=== PATIENT | female | born 1965 | race Caucasian/White ===

== ENCOUNTER 2017-07-15 07:30 | Inpatient (IN) | payer BC ==
--- NOTE | 2017-07-02 19:33 | HP ---
HISTORY AND PHYSICAL: DATE OF ADMISSION/SURGERY: 07/15/17 DATE OF OFFICE VISIT: 07/02/17 SURGEON: Deann Mcmahon MD * (DICTATED BY MEJIA ALEGRE) PROCEDURE: Right total knee arthroplasty. CHIEF COMPLAINT: Right knee pain. HISTORY OF PRESENT ILLNESS: Kortney is a 52-year-old female with continued complaints of right knee pain secondary to advanced osteoarthritis. She has failed conservative management and has elected to proceed with a right total knee arthroplasty, which is scheduled for 07/15/17. PAST MEDICAL HISTORY: High cholesterol, hypertension, GERD, and history of AVM. PAST SURGICAL HISTORY: Partial hysterectomy, diskectomy, craniotomy, bilateral knee arthroscopies, wisdom teeth extraction, and cervical fusion. CURRENT MEDICATIONS: 1. Lisinopril 30 mg every day. 2. Effexor 75 mg every day. 3. Protonix 40 mg every day. 4. Aleve as needed. ALLERGIES: To DILANTIN, TEGRETOL, and TAPE. FAMILY HISTORY: Cancer. SOCIAL HISTORY: She is a 52-year-old female. She lives alone. 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 She does not smoke or use drugs. She drinks occasional alcohol. REVIEW OF SYSTEMS: A complete 14-point review of systems was reviewed with the patient. It is all negative or noncontributory. PHYSICAL EXAMINATION GENERAL: She is well developed, well nourished, in no acute distress. VITAL SIGNS: She stands 5 feet 5 inches tall, weighs 218 pounds. Her blood pressure is 143/82, heart rate 79. HEENT: Normocephalic, atraumatic. NECK: Supple. No palpable lymph nodes. PULMONARY: Lungs are clear to auscultation bilaterally. CARDIO: Regular rate and rhythm. Strong S1, S2. ABDOMEN: Soft, nontender, nondistended. NEUROLOGICAL: She is alert and oriented x3. Cranial nerves II through XII are intact. MUSCULOSKELETAL: Right lower extremity, the skin is intact. There are no open wounds or abrasions. She has tenderness to palpation over the medial and lateral joint lines. 0 to 125 degrees range of motion. No varus or valgus instability. 2+ dorsalis pedis pulses. Intact sensation. Her lower extremity muscle group strengths are intact at 5/5. ASSESSMENT AND PLAN: Kortney is a 52-year-old female with continued complaints of right knee pain secondary to advanced end-stage arthritis of the right knee. She has failed conservative management and has elected to proceed with right total knee arthroplasty, which is scheduled for 07/15/[address] Mcmahon discussed the risks and benefits of the surgery at today's visit and all of her questions were answered. [place] and Colace were sent to her pharmacy for postoperative pain control and Coumadin was sent as well for DVT prophylaxis. She will see Dr. Mcmahon back in 2 weeks after the surgery. MEJIA ALEGRE [id number]/[facility] #: [id number] MTDD
[~2017-07-15 07:30] MED LIST: Buffered Lidocaine 0.9% SYRIN* 5 ML/SYR SYRINGE INTRADERM ONE; Buffered Lidocaine 0.9% SYRIN* 5 ML/SYR SYRINGE ONE; ceFAZolin 2 GM PREMIX (*) 50 ML IVPB ONE
[2017-07-15] MEDS ORDERED: Midazolam* 1 MG/ML 5 ML VIAL (5 MG) ONE (08:45)
[2017-07-15] MEDS ORDERED: fentaNYL* 50 MCG/ML 2 ML VIAL (100 MCG VIAL) ONE (08:45)
[2017-07-15] MEDS ORDERED: Bupivacaine 0.5% SDV PF* 30 ML VIAL ONE ×2 (09:00→09:35)
[2017-07-15] MEDS ORDERED: Morphine PF AMP (0.5MG/ML)* 5 MG/10 ML AMP ONE (09:06)
[2017-07-15] MEDS ORDERED: Bupivacaine 0.5% W/EPI SDV* 30 ML VIAL ONE (09:35)
[2017-07-15] MEDS ORDERED: Propofol* 10 MG/ML 20 ML BTL IV PUSH ONE ×2 (09:35→10:09)
[2017-07-15] MEDS ORDERED: Midazolam* 1 MG/ML 2 ML VIAL (2 MG) ONE ×2 (09:38→10:07)
[2017-07-15] MEDS ORDERED: DiMENhydriNATE IV* 50 MG/ML VIAL IV PUSH PRN (10:00)
[2017-07-15] MEDS ORDERED: Nalbuphine* 20 MG/ML 1 ML VIAL IV PRN (10:00)
[2017-07-15] MEDS ORDERED: PROCHLORPERAZINE INJ 5 MG/ML 2 ML VIAL IV PRN (10:00)
[2017-07-15] MEDS ORDERED: Ondansetron INJ* 2 MG/ML VIAL IV PRN ×2 (10:00→12:15)
[2017-07-15] MEDS ORDERED: Scopolomine PATCH Remove* 1 NOTE MISC PATCH OFF PRN (10:00)
[2017-07-15] MEDS ORDERED: Scopolamine 1.5 mg* PATCH TRANSDERM PRN (10:00)
[2017-07-15] MEDS ORDERED: Naloxone* 0.4 MG/ML 1 ML VIAL IV PRN (10:00)
[2017-07-15] MEDS ORDERED: Polyethylene Glycol 3350* 17 GM PACKET PO PRN (12:15)
[2017-07-15] MEDS ORDERED: Ondansetron TAB* 4 MG PO PRN (12:15)
[2017-07-15] MEDS ORDERED: Acetaminophen TAB* 325 MG PO PRN (12:15)
[2017-07-15] MEDS ORDERED: diPHENhydraMINE IV* 50 MG/ML 1 ml VIAL (BENADRYL) ONE (12:52)
[2017-07-15] MEDS: diPHENhydraMINE IV* 50 MG/ML 1 ml VIAL (BENADRYL) IV PRN ×2 (12:53→20:09)
--- NOTE | 2017-07-15 13:00 | RAD ---
Indication: Immediate postop exam following RIGHT total knee replacement. Comparison: March 22, 2017 Technique: Portable AP and cross table lateral views RIGHT knee. Report: Status post total knee replacement. Anterior surgical drain in place. Predominant anterior and soft tissue swelling. Alignment is anatomic. No periprosthetic fracture evident. IMPRESSION: Unremarkable immediate postoperative appearance following RIGHT knee replacement.
[2017-07-15] MEDS ORDERED: oxyCODONE/Acetamin 5/325 MG* TAB ONE (14:01)
[2017-07-15] MEDS: oxyCODONE/Acetamin 5/325 MG* TAB PO PRN ×4 (14:02→23:32)
[2017-07-15] MEDS ORDERED: Warfarin TAB(*) 4 MG PO ONE (17:00)
[2017-07-15] MEDS: ceFAZolin 1 GM VIAL(*) 1 GM in NS 0.9% 50 ML* 50 ML IVPB SCH (17:39)
[2017-07-15] MEDS ORDERED: diPHENhydraMINE IV* 50 MG/ML 1 ml VIAL (BENADRYL) IV PRN (20:08)
[2017-07-15] MEDS: Magnesium Hydroxide LIQ* 30 ML UDC PO SCH (20:08)
[2017-07-15] MEDS: Docusate CAP* 100 MG PO SCH (20:08)
[2017-07-15] MEDS: Ferrous Sulfate TAB* 325 MG PO SCH (20:09)
[2017-07-16] MEDS: oxyCODONE/Acetamin 5/325 MG* TAB PO PRN ×5 (01:40→21:58)
[2017-07-16] MEDS: ceFAZolin 1 GM VIAL(*) 1 GM in NS 0.9% 50 ML* 50 ML IVPB SCH ×2 (01:40→09:54)
[2017-07-16] MEDS: oxyCODONE TAB* 5 MG TAB PO PRN ×3 (03:18→17:44)
[2017-07-16 06:43] LABS: Hematocrit 32 % (35-47); Hemoglobin 10.8 g/dl (12.0-16.0)
[2017-07-16 06:44] LABS: Comments Flag Yes
[2017-07-16 06:56] LABS: BUN/Creatinine Ratio 9.7 (8-20); Calcium 8.4 mg/dL (8.6-10.3); EGFR Non-African American 101.1 (>60)
[2017-07-16 06:58] LABS: Potassium 4.1 mmol/L (3.5-5.0)
--- NOTE | 2017-07-16 08:45 | OP ---
DATE OF SURGERY: 07/15/17 - ROOM #339 DATE OF : 65 ATTENDING SURGEON: Deann Mcmahon MD. YARN WEIGHT AND STRENGTH TESTER: MEJIA Byrne. Phijudith did help throughout the procedure with preparation of the leg, wound retraction, manipulation of the knee, and wound closure. ANESTHESIOLOGIST: Dr. Ivonne Robertson. ANESTHESIA: Spinal with adductor nerve block. PRE-OP DIAGNOSIS: Severe end-stage degenerative osteoarthritis of the right knee joint. POST-OP DIAGNOSIS: Severe end-stage degenerative osteoarthritis of the right knee joint. PROCEDURE PERFORMED: Right total knee arthroplasty. TOURNIQUET TIME: 57 minutes. ESTIMATED BLOOD LOSS: 250 cc. COMPLICATIONS: None. SPECIMENS: Bone and cartilage from the right knee joint sent to pathology. HARDWARE USED: [employer] Nephew cemented total knee arthroplasty hardware. Two packages of Simplex bone cement. For the femur, a size 5 narrow right posterior stabilized Legion Oxinium femoral component. For the tibial tray, size 3 right tibial baseplate. For the insert, a 9 mm posterior stabilized articular insert size 3-4. For the patella, 32-mm 7.5 thickness 3-peg all poly patella. BRIEF HISTORY/INDICATIONS: Mr. Bustamante is a 52-year-old female with years of increasingly severe right knee pain. She failed conservative treatment with antiinflammatories, pain medication, intraarticular injections, and physical therapy. Radiographs showed compartmental end-stage arthritis of the right knee joint. Due to continued pain and decreased quality of life, she elected to undergo right total knee arthroplasty. Informed consent was obtained from the patient. She understood the risks of the procedure included, but were not limited to bleeding, infection, damage to nearby structures, continued pain, need for further surgery, intraoperative fracture, nerve palsy, hardware failure or loosening, knee stiffness, loss of motion, stroke, heart attack, blood clot, and . She wished to proceed. INTRAOPERATIVE FINDINGS: Intraoperatively, the patient was noted to have extreme deformation of the patella with osteophyte formation and subchondral sclerosis. She had complete loss of cartilage along the medial and lateral femoral condyles. Preoperatively, she was noted to have a 15-degree flexion contracture. This was corrected to full extension to 130 degrees of flexion by the end of the case. DESCRIPTION OF PROCEDURE: Ms. Bustamante was identified in the preanesthesia unit. Her right lower extremity was marked as the correct operative side. Informed consent was signed and placed in the chart. The patient was taken to the operating room and placed under spinal anesthesia with an adductor nerve block. [place] catheter was placed. Tourniquet was placed on the right thigh. The right lower extremity was prepped and draped in the usual sterile fashion. Preop time-out was made to correctly identify the patient's side and site. Appropriate perioperative antibiotics were given within one hour of incision. A 12-cm midline incision was made with a 10-blade and carried down to the extensor mechanism. A new 10-blade was used to make a median parapatellar arthrotomy. Electrocautery was used to subperiosteally elevate soft tissue off the superomedial tibia to the sagittal plane. Any osteophytes were removed with a rongeur. The knee was flexed up. The anterior horn of the lateral meniscus and ACL were sharply released. A drill was used to enter the distal femur. Intramedullary distal cutting guide was pinned into proper position on the distal femur. 9-mm of distal femoral bone was carefully removed with an oscillating saw. Next, the external rotation pinned on the distal femur. The distal femur was sized to a size 5. A size 5 multi-cutting jig was pinned on the distal femur. Oscillating saw was used to make the appropriate chamfer cuts. Next, the PCL was completely released using electrocautery. The extramedullary tibial cutting guide was pinned on the proximal tibia. Oscillating saw was used to make the proximal tibial cut perpendicular to the mechanical axis of the tibia. The bone was carefully removed. The knee was brought out into full extension, and a spacer block had excellent fit. There was good medial and lateral ligaments balancing. Good flexion and extension ___ __ balancing. The knee was flexed up. Lamina generator mechanic was placed both medially and laterally. Any remaining meniscus was carefully removed using electrocautery. Posterior osteophytes were removed using a curette and curved osteotome. Tibial tray and drop renetta were used to, once again, confirm satisfactory proximal tibial cut. A size 5 right narrow femoral trial was impacted onto the distal femur. This had excellent fit. The box for the posterior stabilized implant was prepared using a reamer and box cut osteotome. A size 3 tibial tray with a 9-mm insert trial was placed, and the knee was taken through a range of motion. The knee had full extension to 130 degrees of flexion. There was good patellofemoral tracking. The patella was carefully everted. 7 mm of patellar bone and cartilage was carefully removed using an oscillating saw. The patella was sized to a size 32. The three peg holes were drilled through the size 32 guide. A 7.5- thickness patellar trial was chosen, and this was placed on the patella. The knee was taken through a range of motion, and there was satisfactory patellofemoral tracking. All trials were carefully removed. The tibia was subluxed anteriorly and sized to a size 3. The proximal tibia was prepared using a size 3 keel punch. All bony cut surfaces were copiously irrigated with sterile saline and dried. The final implants were cemented into place starting with the tibia, followed by the femur, and last the patella. A 9-mm insert trial was placed while the knee was brought out into full extension. Tourniquet was turned down at 57 minutes. The knee was copiously irrigated with sterile saline. Once the cement had fully cured, the insert trial was removed. Any excess cement was carefully removed from around the implant and capsule. Electrocautery was used to obtain meticulous hemostasis. Final insert chosen was a 9-mm posterior stabilized articular insert, size 3-4. This was locked into position on the tibial tray without difficulty. The stability of the insert was checked and rechecked, and noted to be stable. The knee was once again copiously irrigated with sterile saline. Extensor mechanism was closed using interrupted #1 Vicryls over a medium Hemovac drain. The rest of the incision was closed in a layered fashion using 0 and 2-0 Vicryls. Skin was closed using running 3-0 nylon suture. Sterile Xeroform, 4x4s, and Webril were used to cover the incision. Justus wrap and cold pack were placed over this. The patient's anesthesia was reversed without difficulty. She was taken to the PACU in stable condition. Intended weightbearing will be weightbearing as tolerated. Intended DVT prophylaxis will be Coumadin with a Lovenox bridge. [id number]/[facility] #: [id number] [facility]
[2017-07-16] MEDS: Venlafaxine EXT RELEASE CAP* 75 MG PO SCH (08:47)
[2017-07-16] MEDS: Docusate CAP* 100 MG PO SCH ×2 (08:47→20:26)
[2017-07-16] MEDS: Omeprazole CAP* 20 MG PO SCH (08:47)
[2017-07-16] MEDS: Magnesium Hydroxide LIQ* 30 ML UDC PO SCH ×2 (08:47→20:27)
[2017-07-16] MEDS: oxyCODONE SR TAB(*) 10 MG TAB.SR PO SCH ×2 (08:48→20:26)
[2017-07-16] MEDS: Lisinopril TAB* 10 MG PO SCH (08:50)
[2017-07-16] MEDS: Ferrous Sulfate TAB* 325 MG PO SCH ×2 (08:50→20:26)
[2017-07-16] MEDS: Vitamin THERAPEUTIC TAB PO SCH (08:50)
[2017-07-16] MEDS ORDERED: NS 0.9% 50 ML* 50 ML ONE (09:50)
--- NOTE | 2017-07-16 10:59 | PN ---
Progress Note - Progress Note Date of Service: 07/16/17 SOAP: Subjective: Pt. is alert, c/o severe pain. Objective: RLE - dressing c/d/i. distally nvi with +df/pf, full sens lt, 2+ dp pulse. drain removed, tip intact. Vital Signs: Temp Pulse Resp BP Pulse Ox 99.7 F 95 18 126/66 94 07/16/17 08:13 07/16/17 08:13 07/16/17 09:55 07/16/17 08:13 07/16/17 08:13 Laboratory Results - last 24 hr 07/16/17 07/16/17 07/16/17 06:32 06:32 06:32 Hgb 10.8 L Hct 32 L INR (Anticoag Therapy) 1.31 H Sodium 136 Potassium 4.1 Chloride 101 Carbon Dioxide 30 Anion Gap 5 BUN 6 Creatinine 0.62 Est GFR ( Amer) 130.0 Est GFR (Non-Af Amer) 101.1 BUN/Creatinine Ratio 9.7 Glucose 122 H Calcium 8.4 L Assessment: 52 yo F pod 1 s/p RTKA Plan: wbat pt/ot lovenox while in hospital, home on ecasa plan d/c to home with outpt pt
[2017-07-16] MEDS: Enoxaparin(*) 40 MG/0.4 ML SYR SUBCUT SCH (12:46)
[2017-07-16] MEDS: Morphine INJ* 4 MG/ML 1 ML SYRINGE IV PRN (15:24)
[2017-07-17] MEDS: oxyCODONE TAB* 5 MG TAB PO PRN ×5 (00:21→21:42)
[2017-07-17] MEDS: oxyCODONE/Acetamin 5/325 MG* TAB PO PRN ×4 (03:29→18:04)
[2017-07-17 06:55] LABS: Hematocrit 29 % (35-47); Hemoglobin 9.7 g/dl (12.0-16.0); Mean Platelet Volume 8 um3 (7.4-10.4)
--- NOTE | 2017-07-17 08:34 | PN ---
Progress Note - Progress Note Date of Service: 07/17/17 SOAP: Subjective: Pt. resting comfortably in bed with complaints of moderate pain Objective: Vital Signs Temp Pulse Resp BP Pulse Ox 99.0 F 104 18 127/71 98 07/17/17 03:32 07/17/17 03:32 07/17/17 06:41 07/17/17 03:32 07/17/17 03:32 Laboratory Last Values Hgb 9.7 g/dl (12.0-16.0) L 07/17/17 06:35 Hct 29 % (35-47) L 07/17/17 06:35 Plt Count 261 10^3/ul (150-450) 07/17/17 06:35 MPV 8 um3 (7.4-10.4) 07/17/17 06:35 INR (Anticoag Therapy) 1.43 (0.89-1.11) H 07/17/17 06:35 Sodium 136 mmol/L (133-145) 07/16/17 06:32 Potassium 4.1 mmol/L (3.5-5.0) 07/16/17 06:32 Chloride 101 mmol/L (101-111) 07/16/17 06:32 Carbon Dioxide 30 mmol/L (22-32) 07/16/17 06:32 Anion Gap 5 mmol/L (2-11) 07/16/17 06:32 BUN 6 mg/dL (6-24) 07/16/17 06:32 Creatinine 0.62 mg/dL (0.51-0.95) 07/16/17 06:32 Est GFR ( Amer) 130.0 (>60) 07/16/17 06:32 Est GFR (Non-Af Amer) 101.1 (>60) 07/16/17 06:32 BUN/Creatinine Ratio 9.7 (8-20) 07/16/17 06:32 Glucose 122 mg/dL (70-100) H 07/16/17 06:32 Calcium 8.4 mg/dL (8.6-10.3) L 07/16/17 06:32 incision: c/d; dressing changed PE: NVI Assessment: s/p Right TKA Plan: 1) PT/OT-WBAT 2) Lovenox/SCD's for DVT prophylaxis; will go home with ecasa 3) likely home tomorrow with VNS
[2017-07-17] MEDS: Omeprazole CAP* 20 MG PO SCH (09:37)
[2017-07-17] MEDS: Lisinopril TAB* 10 MG PO SCH (09:40)
[2017-07-17] MEDS: Ferrous Sulfate TAB* 325 MG PO SCH ×2 (09:49→19:51)
[2017-07-17] MEDS: Docusate CAP* 100 MG PO SCH ×2 (09:49→19:51)
[2017-07-17] MEDS: oxyCODONE SR TAB(*) 10 MG TAB.SR PO SCH ×2 (09:49→19:51)
[2017-07-17] MEDS: Magnesium Hydroxide LIQ* 30 ML UDC PO SCH ×2 (09:49→20:45)
[2017-07-17] MEDS: Vitamin THERAPEUTIC TAB PO SCH (09:50)
[2017-07-17] MEDS: Venlafaxine EXT RELEASE CAP* 75 MG PO SCH (09:50)
[2017-07-17] MEDS ORDERED: Cyclobenzaprine TAB* 10 MG PO PRN (10:02)
[2017-07-17] MEDS: Morphine INJ* 4 MG/ML 1 ML SYRINGE IV PRN (10:03)
[2017-07-17] MEDS: Enoxaparin(*) 40 MG/0.4 ML SYR SUBCUT SCH (12:49)
[2017-07-18] MEDS: oxyCODONE TAB* 5 MG TAB PO PRN ×3 (04:01→12:56)
[2017-07-18 06:22] LABS: Hematocrit 27 % (35-47)
--- NOTE | 2017-07-18 07:22 | PN ---
Progress Note - Progress Note Date of Service: 07/18/17 SOAP: Subjective: pt resting comfortably with no complaints, pain controlled with PO meds Objective: Vital Signs Temp Pulse Resp BP Pulse Ox 99.0 F 109 15 126/62 93 07/18/17 03:48 07/18/17 03:48 07/18/17 05:58 07/18/17 03:48 07/18/17 03:48 Laboratory Last Values Hgb 9.0 g/dl (12.0-16.0) L 07/18/17 05:46 Hct 27 % (35-47) L 07/18/17 05:46 Plt Count 261 10^3/ul (150-450) 07/17/17 06:35 MPV 8 um3 (7.4-10.4) 07/17/17 06:35 INR (Anticoag Therapy) 1.23 (0.89-1.11) H 07/18/17 05:46 Sodium 136 mmol/L (133-145) 07/16/17 06:32 Potassium 4.1 mmol/L (3.5-5.0) 07/16/17 06:32 Chloride 101 mmol/L (101-111) 07/16/17 06:32 Carbon Dioxide 30 mmol/L (22-32) 07/16/17 06:32 Anion Gap 5 mmol/L (2-11) 07/16/17 06:32 BUN 6 mg/dL (6-24) 07/16/17 06:32 Creatinine 0.62 mg/dL (0.51-0.95) 07/16/17 06:32 Est GFR ( Amer) 130.0 (>60) 07/16/17 06:32 Est GFR (Non-Af Amer) 101.1 (>60) 07/16/17 06:32 BUN/Creatinine Ratio 9.7 (8-20) 07/16/17 06:32 Glucose 122 mg/dL (70-100) H 07/16/17 06:32 Calcium 8.4 mg/dL (8.6-10.3) L 07/16/17 06:32 incision: c/d PE: NVI Assessment: s/p right TKA Plan: 1) PT/OT- WBAT 2) Home today, will go home on ASA 325 BID and F/U with Dr. Mcmahon in 2 weeks
[2017-07-18] MEDS: Lisinopril TAB* 10 MG PO SCH (08:40)
[2017-07-18] MEDS: Docusate CAP* 100 MG PO SCH (08:40)
[2017-07-18] MEDS: oxyCODONE SR TAB(*) 10 MG TAB.SR PO SCH (08:41)
[2017-07-18] MEDS: Omeprazole CAP* 20 MG PO SCH (08:41)
[2017-07-18] MEDS: Venlafaxine EXT RELEASE CAP* 75 MG PO SCH (08:41)
[2017-07-18] MEDS: Vitamin THERAPEUTIC TAB PO SCH (08:42)
[2017-07-18] MEDS: Ferrous Sulfate TAB* 325 MG PO SCH (08:42)
[2017-07-18] MEDS: Magnesium Hydroxide LIQ* 30 ML UDC PO SCH (08:43)
--- NOTE | 2017-07-18 10:04 | DS ---
DISCHARGE SUMMARY: DATE OF ADMISSION: 07/15/17 DATE OF DISCHARGE: 07/18/17 SURGEON: Deann Mcmahon MD. * (DICTATED BY MEJIA ALEGRE) PRINCIPAL DIAGNOSIS: Severe end-stage osteoarthritis of the right knee. DISCHARGE DIAGNOSIS: Severe end-stage osteoarthritis of the right knee. HISTORY OF PRESENT ILLNESS: Ms. Bustamante is a 52-year-old female with continued complaints of right knee pain secondary to end-stage osteoarthritis. She has failed conservative management and has elected to proceed with a right total knee arthroplasty. HOSPITAL COURSE: Ms. Bustamante is a 52-year-old female. She was admitted electively to the hospital on 07/15/17 and underwent a right total knee arthroplasty. She tolerated the procedure well, with no complications. Postoperatively, she was placed on Lovenox for DVT prophylaxis. On postop day 1 , her H and H was 10 and 32, on postop day 2 was 9 and 29, and on postop day 3 was 9 and 27. She remained afebrile and her vital signs were stable. By the time of discharge on 07/18/17, she was ambulating well with the aid of a walker and/or crutches. Her wound was clean and dry. She was overall neurovascularly intact. She was discharged home. DISCHARGE MEDICATIONS: 1. Colace. 2. Aspirin 325 mg twice a day for 4 weeks. 3. [place] 5/325, 1 to 2 tabs every 4 to 6 hours. 4. OxyContin 20 mg twice daily. 5. Omeprazole 20 mg daily. 6. Effexor 75 mg once a day. PHYSICAL EXAM UPON DISCHARGE: The incision is clean and dry. There are no signs of infection. She is overall neurovascularly intact and ambulating well with the aid of crutches. DISCHARGE INSTRUCTIONS: She was discharged home. She was asked to take aspirin 325 twice a day for a month. She will start outpatient physical therapy next week and a prescription was provided. She has a prescription for long-acting 20 mg OxyContin for 2 weeks as well as [place] 5/325, to take every 4 to 6 hours. She is able to shower, but no baths, hot tubs or pools. She will follow up with Dr. Mcmahon in 2 weeks for suture removal. We have asked her to call our office sooner with any questions or concerns. MEJIA ALEGRE [id number]/[facility] #: [id number] [facility]ALE[facility]anor
[2017-07-18] MEDS: Enoxaparin(*) 40 MG/0.4 ML SYR SUBCUT SCH (12:56)
[2017-07-18 14:23] VITALS: BP 128/63
== END 2017-07-18 13:20 | disposition home or self-care (01) | DRG 302 ==
LOC: AA 07:49 → SSU 12:15
PROVIDERS: ADMIT Orthopaedic Surgery Adult Reconstructive Orthopaedic Surgery; ATTEND Orthopaedic Surgery Adult Reconstructive Orthopaedic Surgery
PROC: 0SRC0J9 Replacement of Right Knee Joint with Synthetic Substitute, Cemented, Open Approach (ICD-10-PCS; principal; 2017-07-15 09:00)
DX: M17.11 Unilateral primary osteoarthritis, right knee (principal); I10 Essential (primary) hypertension; E78.00 Pure hypercholesterolemia, unspecified; E78.5 Hyperlipidemia, unspecified; E66.9 Obesity, unspecified; K21.9 Gastro-esophageal reflux disease without esophagitis; F32.9 Major depressive disorder, single episode, unspecified; M25.761 Osteophyte, right knee; M24.561 Contracture, right knee; Z79.891 Long term (current) use of opiate analgesic; Z90.711 Acquired absence of uterus with remaining cervical stump; Z98.1 Arthrodesis status; Z88.8 Allergy status to other drugs, medicaments and biological substances; Z91.048 Other nonmedicinal substance allergy status; Z80.9 Family history of malignant neoplasm, unspecified; Z72.89 Other problems related to lifestyle; Z68.36 Body mass index [BMI] 36.0-36.9, adult
CPT/HCPCS: 36415; 80048; 85014; 85018; 85049; 85610; A9270-GY; C1776; J0690; J1200; J1240; J1650; J2250; J2270; J2704; J3010